=== PATIENT | male | born 1940 | race Caucasian/White ===

== ENCOUNTER → 2018-04-02 | Outpatient (CLI) | payer MEDICARE, OTHER ==
[~2018-04-02] MED LIST: ALPR.5; AMIO200 PO; ASCO1ER PO; ASCO500 PO; Ativan0.5 MG SL; BACL10 PO; CYCL10 PO; DIGO.25 PO; DILT120; DOCU100; DOCU100 PO; Dazidox10 MG PO; ERGO400 PO; FISH1000 PO; FLEC50 PO; FURO20; GABA100 PO; HYDMOR4 PO; HYDROMORPHO; LISI20; LISI20 PO; LOSA50 PO; METO25ER; METO25ER PO; METO50 PO; METO50ER PO; MORP15ER PO; MORP30ER PO; MORPHINE PUMP; MULVITB&C PO; MULVITMIND PO; MULVITMINF PO; NIAC500 PO; NORT75 PO; ONDA4ODT MM; ONDA8 PO; OXYC30 PO; PROP150 PO; Percocet 5-3251 EACH PO; ROSU10TA PO; SALMON OIL PO; SIMV40; SLEEP-AID25 MG PO; TADA10TA PO; TERA5; TIZANIDINE HCL4 MG PO; TOCO400 PO; TRAZ100; TRAZ100 PO; Tobrex5 ML RIGHTEYE; VITAMIN D PO; VITB100 PO; WARF10; WARF10 PO; WARF7.5; WARF7.5 PO; [UNRECOGNIZED DRUG - OTHER] PO; [UNRECOGNIZED DRUG - REMARK]
== END | disposition home or self-care (01) ==
LOC: PLD 10:07 → LAB SHORT 10:07
DX: C44.619 Basal cell carcinoma of skin of left upper limb, including shoulder (principal)
CPT/HCPCS: 88305

== ENCOUNTER 2018-06-13 11:11 | Emergency (ER) | payer MEDICARE, OTHER ==
[~2018-06-13] VITALS: Ht 167.6 cm; Wt 79.8 kg
[2018-06-13 11:36] LABS: PCO2 Arterial 35.1 mmHg (35-45); PO2 Arterial 63.3 mmHg (80-100)
[2018-06-13 11:49] LABS: BASOPHILS ABSOLUTE AUTO 0.04 K/mm3 (0.00-0.23); BASOPHILS PERCENT AUTO 0 % (0-2); EOSINOPHILS PERCENT AUTO 0 % (0-6); Hematocrit 37.4 % (37.0-53.0); Hemoglobin 12.4 g/dL (13.5-17.5); IMMATURE GRAN ABSOLUTE AUTO 0.06 K/mm3 (0.00-0.10); IMMATURE GRAN PERCENT AUTO 1 % (0-1); LYMPHOCYTES ABSOLUTE AUTO 1.08 K/mm3 (0.84-5.20); LYMPHOCYTES PERCENT AUTO 8 % (21-46); MONOCYTES ABSOLUTE AUTO 0.26 K/mm3 (0.16-1.47); MONOCYTES PERCENT AUTO 2 % (4-13); Mean Corpuscular HGB 30.2 pg (26.0-34.0); Mean Corpuscular HGB Conc 33.2 g/dL (31.5-36.5); Mean Corpuscular Volume 91 fL (80-100); Mean Platelet Volume 9.2 fL (9.1-12.4); NEUTROPHILS ABSOLUTE AUTO 11.69 K/mm3 (1.96-9.15); NEUTROPHILS PERCENT AUTO 89 % (41-73); Platelet Count 265 K/mm3 (150-400); RDW Standard Deviation 43.1 fL (35.1-46.3); White Blood Cell Count 13.13 K/mm3 (4.00-11.30)
[2018-06-13 12:12] LABS: Alanine Aminotransfer (ALT/SGP 20 U/L (12-78); Albumin, Blood 3.7 g/dL (3.4-5.0); Albumin/Globulin Ratio 0.9 (0.8-1.8); Alk Phos 69 U/L (50-136); Anion Gap 9 mmol/L (6-16); Aspartate Aminotrans (AST/SGOT 20 U/L (12-37); Bilirubin, Total 0.6 mg/dL (0.1-1.0); Blood Urea Nitrogen 16 mg/dL (8-24); Bun/Creatinine Ratio 23.2 (12.0-20.0); CO2, Blood 27 mmol/L (21-32); Calcium, Blood 9.9 mg/dL (8.5-10.1); Chloride, Blood 103 mmol/L (98-108); Creatinine, Blood 0.69 mg/dL (0.60-1.20); Globulin, Blood 4.1 g/dL (2.2-4.0); Glomerular Filtration Rate >60 (60-); Glucose, Blood 126 mg/dL (70-99); Potassium, Blood 3.6 mmol/L (3.5-5.5); Sodium, Blood 139 mmol/L (136-145); Total Protein, Blood 7.8 g/dL (6.4-8.2)
[2018-06-13] MEDS ORDERED: K-Dur10 MEQ (12:35)
[2018-06-13] MEDS ORDERED: AMLO10 PO (12:35)
[2018-06-13] MEDS ORDERED: FURO20 PO (12:35)
== END 2018-06-13 14:57 | disposition home or self-care (01) ==
LOC: ER 11:11
PROVIDERS: Emergency Medicine
DX: R10.84 Generalized abdominal pain (principal); R53.1 Weakness; Z88.1 Allergy status to other antibiotic agents; Z88.8 Allergy status to other drugs, medicaments and biological substances; Z88.5 Allergy status to narcotic agent; Z91.048 Other nonmedicinal substance allergy status; Z91.040 Latex allergy status; Z79.899 Other long term (current) drug therapy; I48.91 Unspecified atrial fibrillation
CPT/HCPCS: 36415; 36600; 74176; 80053; 82550; 82803; 83605; 83690; 84484; 85025; 93005; 93010; 96361; 96374; 96375; 99285-25; J2405; J3010; J7030

== ENCOUNTER → 2018-06-15 | Outpatient (CLI) | payer MEDICARE, OTHER ==
[~2018-06-15] MED LIST changes: +AMLO10 PO; +FURO20 PO; +K-Dur10 MEQ
[2018-06-15 08:57] LABS: BASOPHILS ABSOLUTE AUTO 0.05 K/mm3 (0.00-0.23); BASOPHILS PERCENT AUTO 0 % (0-2); EOSINOPHILS ABSOLUTE AUTO 0.04 K/mm3 (0.00-0.68); EOSINOPHILS PERCENT AUTO 0 % (0-6); Hematocrit 36.1 % (37.0-53.0); Hemoglobin 12.1 g/dL (13.5-17.5); IMMATURE GRAN ABSOLUTE AUTO 0.09 K/mm3 (0.00-0.10); IMMATURE GRAN PERCENT AUTO 1 % (0-1); LYMPHOCYTES ABSOLUTE AUTO 1.61 K/mm3 (0.84-5.20); LYMPHOCYTES PERCENT AUTO 11 % (21-46); MONOCYTES ABSOLUTE AUTO 1.35 K/mm3 (0.16-1.47); MONOCYTES PERCENT AUTO 9 % (4-13); Mean Corpuscular HGB 30.1 pg (26.0-34.0); Mean Corpuscular HGB Conc 33.5 g/dL (31.5-36.5); Mean Corpuscular Volume 90 fL (80-100); Mean Platelet Volume 9.2 fL (9.1-12.4); NEUTROPHILS ABSOLUTE AUTO 11.96 K/mm3 (1.96-9.15); NEUTROPHILS PERCENT AUTO 79 % (41-73); Platelet Count 250 K/mm3 (150-400); RDW Coefficient Variation 13.2 % (11.7-14.2); RDW Standard Deviation 43.6 fL (35.1-46.3); Red Blood Cell Count 4.02 M/mm3 (4.30-5.90)
[2018-06-15 09:09] LABS: Alanine Aminotransfer (ALT/SGP 27 U/L (12-78); Albumin, Blood 3.4 g/dL (3.4-5.0); Albumin/Globulin Ratio 0.9 (0.8-1.8); Alk Phos 64 U/L (40-126); Anion Gap 10 mmol/L (6-16); Aspartate Aminotrans (AST/SGOT 39 U/L (12-37); Bilirubin, Total 0.5 mg/dL (0.1-1.0); Blood Urea Nitrogen 16 mg/dL (8-24); Bun/Creatinine Ratio 19.3 (12.0-20.0); CO2, Blood 26 mmol/L (21-32); Chloride, Blood 104 mmol/L (98-108); Creatinine, Blood 0.83 mg/dL (0.60-1.20); Glomerular Filtration Rate >60 (60-); Glucose, Blood 115 mg/dL (70-99); Potassium, Blood 3.2 mmol/L (3.5-5.5); Sodium, Blood 140 mmol/L (136-145); Total Protein, Blood 7.4 g/dL (6.4-8.2)
== END | disposition home or self-care (01) ==
LOC: LAB EV 08:54 → LAB SHORT 08:54
PROVIDERS: Physician Assistant Surgical
DX: R42 Dizziness and giddiness (principal)
CPT/HCPCS: 80053; 85025

== ENCOUNTER → 2018-12-07 | Outpatient (CLI) | payer MEDICARE, OTHER | END | disposition home or self-care (01) | LOC: LAB EV 13:14 → LAB SHORT 13:14 | DX: T81.40XA Infection following a procedure, unspecified, initial encounter (principal) | CPT/HCPCS: 87070; 87075; 87077; 87186; 87205 ==

== ENCOUNTER 2019-01-13 16:24 | Emergency (ER) | payer MEDICARE, OTHER ==
[~2019-01-13] VITALS: Ht 167.6 cm; Wt 81.7 kg
== END 2019-01-13 19:28 | disposition home or self-care (01) ==
LOC: ER 16:24
DX: M54.5 Low back pain (principal); I48.91 Unspecified atrial fibrillation; E78.5 Hyperlipidemia, unspecified
CPT/HCPCS: 96374; 96376; 99283-25; J3010

== ENCOUNTER 2019-06-30 13:16 | Day surgery (SDC) | payer MEDICARE, OTHER ==
[2019-06-30] MEDS ORDERED: DOCU100 PO (14:18)
[2019-06-30] MEDS ORDERED: LORA.5 PO (14:18)
== END 2019-06-30 14:01 | disposition home or self-care (01) ==
LOC: ATC 13:16
DX: T84.63XA Infection and inflammatory reaction due to internal fixation device of spine, initial encounter (principal); I10 Essential (primary) hypertension; E78.5 Hyperlipidemia, unspecified; Z88.8 Allergy status to other drugs, medicaments and biological substances; Z88.1 Allergy status to other antibiotic agents; Z88.5 Allergy status to narcotic agent
CPT/HCPCS: 82565; 96365; J0878

== ENCOUNTER 2019-07-01 00:19 | Day surgery (SDC) | payer MEDICARE, OTHER ==
[~2019-07-01 00:19] MED LIST changes: +LORA.5 PO
[2019-07-02] MEDS ORDERED: CUBICIN RF500 MG IV (10:01)
== END 2019-07-01 11:12 | disposition home or self-care (01) ==
LOC: ATC 00:19
DX: T84.63XA Infection and inflammatory reaction due to internal fixation device of spine, initial encounter (principal); E78.00 Pure hypercholesterolemia, unspecified; I10 Essential (primary) hypertension; G47.30 Sleep apnea, unspecified; Z88.1 Allergy status to other antibiotic agents; Z88.5 Allergy status to narcotic agent; Z88.8 Allergy status to other drugs, medicaments and biological substances
CPT/HCPCS: 96365; J0878

== ENCOUNTER 2019-07-02 00:12 | Day surgery (SDC) | payer MEDICARE, OTHER ==
[2019-07-02] MEDS ORDERED: CUBICIN RF500 MG IV (10:01)
== END 2019-07-02 10:30 | disposition home or self-care (01) ==
LOC: ATC 00:12
DX: T84.63XA Infection and inflammatory reaction due to internal fixation device of spine, initial encounter (principal); E78.00 Pure hypercholesterolemia, unspecified; G47.00 Insomnia, unspecified; I10 Essential (primary) hypertension; Z98.890 Other specified postprocedural states; Z98.1 Arthrodesis status; Z88.8 Allergy status to other drugs, medicaments and biological substances; Z88.5 Allergy status to narcotic agent; Y83.1 Surgical operation with implant of artificial internal device as the cause of abnormal reaction of the patient, or of later complication, without mention of misadventure at the time of the procedure
CPT/HCPCS: 96365; J0878

== ENCOUNTER 2019-07-03 00:26 | Day surgery (SDC) | payer MEDICARE, OTHER ==
[~2019-07-03 00:26] MED LIST changes: +CUBICIN RF500 MG IV
== END 2019-07-03 10:53 | disposition home or self-care (01) ==
LOC: ATC 00:26
DX: T84.63XA Infection and inflammatory reaction due to internal fixation device of spine, initial encounter (principal); E78.00 Pure hypercholesterolemia, unspecified; G47.30 Sleep apnea, unspecified
CPT/HCPCS: 96365; J0878

== ENCOUNTER 2019-07-04 00:14 | Day surgery (SDC) | payer MEDICARE, OTHER ==
[2019-07-04 10:51] LABS: BASOPHILS ABSOLUTE AUTO 0.07 K/mm3 (0.00-0.23); BASOPHILS PERCENT AUTO 1 % (0-2); EOSINOPHILS ABSOLUTE AUTO 0.64 K/mm3 (0.00-0.68); EOSINOPHILS PERCENT AUTO 5 % (0-6); Hematocrit 27.7 % (37.0-53.0); Hemoglobin 8.7 g/dL (13.5-17.5); IMMATURE GRAN ABSOLUTE AUTO 0.05 K/mm3 (0.00-0.10); IMMATURE GRAN PERCENT AUTO 0 % (0-1); LYMPHOCYTES ABSOLUTE AUTO 1.66 K/mm3 (0.84-5.20); LYMPHOCYTES PERCENT AUTO 14 % (21-46); MONOCYTES ABSOLUTE AUTO 0.95 K/mm3 (0.16-1.47); MONOCYTES PERCENT AUTO 8 % (4-13); Mean Corpuscular HGB 30.7 pg (26.0-34.0); Mean Corpuscular HGB Conc 31.4 g/dL (31.5-36.5); Mean Corpuscular Volume 98 fL (80-100); NEUTROPHILS ABSOLUTE AUTO 8.69 K/mm3 (1.96-9.15); NEUTROPHILS PERCENT AUTO 72 % (41-73); Platelet Count 304 K/mm3 (150-400); RDW Coefficient Variation 13.8 % (11.7-14.2); RDW Standard Deviation 49.2 fL (35.1-46.3); Red Blood Cell Count 2.83 M/mm3 (4.30-5.90); White Blood Cell Count 12.06 K/mm3 (4.00-11.30)
[2019-07-04 11:10] LABS: Alanine Aminotransfer (ALT/SGP 15 U/L (12-78); Albumin, Blood 3.2 g/dL (3.4-5.0); Albumin/Globulin Ratio 0.8 (0.8-1.8); Alk Phos 84 U/L (50-136); Anion Gap 5 mmol/L (6-16); Aspartate Aminotrans (AST/SGOT 16 U/L (12-37); Bilirubin, Total 0.2 mg/dL (0.1-1.0); Blood Urea Nitrogen 12 mg/dL (8-24); Bun/Creatinine Ratio 13.5 (12.0-20.0); CO2, Blood 30 mmol/L (21-32); CPK Creatine Kinase 114 U/L (39-308); Calcium, Blood 8.6 mg/dL (8.5-10.1); Chloride, Blood 103 mmol/L (98-108); Creatinine, Blood 0.89 mg/dL (0.60-1.20); Glomerular Filtration Rate >60 (60-); Glucose, Blood 109 mg/dL (70-99); Potassium, Blood 4.2 mmol/L (3.5-5.5); Sodium, Blood 138 mmol/L (136-145); Total Protein, Blood 7.2 g/dL (6.4-8.2)
--- NOTE | 2019-07-04 11:26 | NUR ---
LABS DRAWN PRIOR TO MEDICATION ADMINISTRATION TODAY.
--- NOTE | 2019-07-04 11:49 | NUR ---
LAB RESULTS FROM TODAY FAXED TO DR. SALDIVAR'S OFFICE.
== END 2019-07-04 11:35 | disposition home or self-care (01) ==
LOC: ATC 00:14
PROVIDERS: Neurological Surgery
DX: T84.63XA Infection and inflammatory reaction due to internal fixation device of spine, initial encounter (principal); E78.00 Pure hypercholesterolemia, unspecified; G47.30 Sleep apnea, unspecified; G43.909 Migraine, unspecified, not intractable, without status migrainosus
CPT/HCPCS: 80053; 82550; 85025; 85651; 86140; 96365; J0878

== ENCOUNTER 2019-07-05 00:22 | Day surgery (SDC) | payer MEDICARE, OTHER | END 2019-07-05 11:01 | disposition home or self-care (01) | LOC: ATC 00:22 | DX: T84.63XA Infection and inflammatory reaction due to internal fixation device of spine, initial encounter (principal); M96.1 Postlaminectomy syndrome, not elsewhere classified; I10 Essential (primary) hypertension; E78.5 Hyperlipidemia, unspecified; G47.30 Sleep apnea, unspecified; Z79.899 Other long term (current) drug therapy; Z88.8 Allergy status to other drugs, medicaments and biological substances; Z88.1 Allergy status to other antibiotic agents; Z88.5 Allergy status to narcotic agent | CPT/HCPCS: 96365; J0878 ==

== ENCOUNTER 2019-07-06 09:51 | Day surgery (SDC) | payer MEDICARE, OTHER | END 2019-07-06 10:36 | disposition home or self-care (01) | LOC: ATC 09:51 | DX: T84.63XA Infection and inflammatory reaction due to internal fixation device of spine, initial encounter (principal); E78.00 Pure hypercholesterolemia, unspecified; G47.30 Sleep apnea, unspecified; I10 Essential (primary) hypertension; Z88.1 Allergy status to other antibiotic agents; Z88.5 Allergy status to narcotic agent; Z88.8 Allergy status to other drugs, medicaments and biological substances; Z79.899 Other long term (current) drug therapy | CPT/HCPCS: 96365; J0878 ==

== ENCOUNTER 2019-07-07 12:55 | Day surgery (SDC) | payer MEDICARE, OTHER | END 2019-07-07 13:58 | disposition home or self-care (01) | LOC: ATC 12:55 | DX: T84.63XA Infection and inflammatory reaction due to internal fixation device of spine, initial encounter (principal); I10 Essential (primary) hypertension; E78.5 Hyperlipidemia, unspecified; G47.30 Sleep apnea, unspecified; Z98.890 Other specified postprocedural states; Z88.8 Allergy status to other drugs, medicaments and biological substances; Z88.1 Allergy status to other antibiotic agents; Z88.5 Allergy status to narcotic agent | CPT/HCPCS: 96365; J0878 ==

== ENCOUNTER 2019-07-08 00:06 | Day surgery (SDC) | payer MEDICARE, OTHER | END 2019-07-08 10:21 | disposition home or self-care (01) | LOC: ATC 00:06 | DX: T84.63XA Infection and inflammatory reaction due to internal fixation device of spine, initial encounter (principal); E78.5 Hyperlipidemia, unspecified; I10 Essential (primary) hypertension; Z88.1 Allergy status to other antibiotic agents; Z88.5 Allergy status to narcotic agent; Z88.8 Allergy status to other drugs, medicaments and biological substances | CPT/HCPCS: 96365; J0878 ==

== ENCOUNTER 2019-07-09 00:18 | Day surgery (SDC) | payer MEDICARE, OTHER | END 2019-07-09 10:25 | disposition home or self-care (01) | LOC: ATC 00:18 | DX: T84.63XA Infection and inflammatory reaction due to internal fixation device of spine, initial encounter (principal); E78.00 Pure hypercholesterolemia, unspecified; G47.30 Sleep apnea, unspecified; I10 Essential (primary) hypertension | CPT/HCPCS: 96365; J0878 ==

== ENCOUNTER 2019-07-10 00:14 | Day surgery (SDC) | payer MEDICARE, OTHER | END 2019-07-10 10:11 | disposition home or self-care (01) | LOC: ATC 00:14 | DX: T84.63XA Infection and inflammatory reaction due to internal fixation device of spine, initial encounter (principal); E78.00 Pure hypercholesterolemia, unspecified; G47.30 Sleep apnea, unspecified; E78.5 Hyperlipidemia, unspecified; I10 Essential (primary) hypertension; Z88.1 Allergy status to other antibiotic agents; Z88.5 Allergy status to narcotic agent; Z88.8 Allergy status to other drugs, medicaments and biological substances | CPT/HCPCS: 96365; J0878 ==

== ENCOUNTER 2019-07-11 00:23 | Day surgery (SDC) | payer MEDICARE, OTHER ==
[2019-07-11 09:36] LABS: BASOPHILS ABSOLUTE AUTO 0.05 K/mm3 (0.00-0.23); BASOPHILS PERCENT AUTO 1 % (0-2); EOSINOPHILS ABSOLUTE AUTO 0.42 K/mm3 (0.00-0.68); EOSINOPHILS PERCENT AUTO 5 % (0-6); Hematocrit 27.7 % (37.0-53.0); Hemoglobin 8.7 g/dL (13.5-17.5); IMMATURE GRAN ABSOLUTE AUTO 0.03 K/mm3 (0.00-0.10); IMMATURE GRAN PERCENT AUTO 0 % (0-1); LYMPHOCYTES PERCENT AUTO 14 % (21-46); MONOCYTES ABSOLUTE AUTO 0.86 K/mm3 (0.16-1.47); MONOCYTES PERCENT AUTO 10 % (4-13); Mean Corpuscular HGB 30.5 pg (26.0-34.0); Mean Corpuscular HGB Conc 31.4 g/dL (31.5-36.5); Mean Corpuscular Volume 97 fL (80-100); Mean Platelet Volume 8.8 fL (9.1-12.4); NEUTROPHILS PERCENT AUTO 69 % (41-73); Platelet Count 375 K/mm3 (150-400); RDW Coefficient Variation 13.5 % (11.7-14.2); RDW Standard Deviation 48.5 fL (35.1-46.3); Red Blood Cell Count 2.85 M/mm3 (4.30-5.90); White Blood Cell Count 8.36 K/mm3 (4.00-11.30)
[2019-07-11 10:12] LABS: Alanine Aminotransfer (ALT/SGP 14 U/L (12-78); Albumin, Blood 3.2 g/dL (3.4-5.0); Albumin/Globulin Ratio 0.7 (0.8-1.8); Alk Phos 83 U/L (50-136); Anion Gap 4 mmol/L (6-16); Aspartate Aminotrans (AST/SGOT 13 U/L (12-37); Bilirubin, Total 0.3 mg/dL (0.1-1.0); Blood Urea Nitrogen 13 mg/dL (8-24); Bun/Creatinine Ratio 15.4 (12.0-20.0); CO2, Blood 29 mmol/L (21-32); CPK Creatine Kinase 80 U/L (39-308); Chloride, Blood 105 mmol/L (98-108); Creatinine, Blood 0.84 mg/dL (0.60-1.20); Globulin, Blood 4.4 g/dL (2.2-4.0); Glomerular Filtration Rate >60 (60-); Glucose, Blood 102 mg/dL (70-99); Potassium, Blood 4.2 mmol/L (3.5-5.5); Sodium, Blood 138 mmol/L (136-145); Total Protein, Blood 7.6 g/dL (6.4-8.2)
== END 2019-07-11 09:49 | disposition home or self-care (01) ==
LOC: ATC 00:23
PROVIDERS: Specialist
DX: T84.63XA Infection and inflammatory reaction due to internal fixation device of spine, initial encounter (principal); I10 Essential (primary) hypertension; E78.5 Hyperlipidemia, unspecified; Z79.899 Other long term (current) drug therapy; Z88.8 Allergy status to other drugs, medicaments and biological substances; Z88.6 Allergy status to analgesic agent
CPT/HCPCS: 80053; 82550; 85025; 85651; 86140; 96365; J0878

== ENCOUNTER 2019-07-12 09:02 | Day surgery (SDC) | payer MEDICARE, OTHER | END 2019-07-12 09:48 | disposition home or self-care (01) | LOC: ATC 09:02 | DX: T84.63XA Infection and inflammatory reaction due to internal fixation device of spine, initial encounter (principal); I10 Essential (primary) hypertension; E78.5 Hyperlipidemia, unspecified; Z88.8 Allergy status to other drugs, medicaments and biological substances; Z88.1 Allergy status to other antibiotic agents; Z88.5 Allergy status to narcotic agent; Z91.048 Other nonmedicinal substance allergy status; Z79.899 Other long term (current) drug therapy | CPT/HCPCS: 96365; J0878 ==

== ENCOUNTER 2019-07-13 08:48 | Day surgery (SDC) | payer MEDICARE, OTHER | END 2019-07-13 09:53 | disposition home or self-care (01) | LOC: ATC 08:48 | DX: T84.63XA Infection and inflammatory reaction due to internal fixation device of spine, initial encounter (principal); E78.00 Pure hypercholesterolemia, unspecified | CPT/HCPCS: 96365; J0878 ==

== ENCOUNTER 2019-07-14 13:04 | Day surgery (SDC) | payer MEDICARE, OTHER | END 2019-07-14 13:49 | disposition home or self-care (01) | LOC: ATC 13:04 | DX: T84.63XA Infection and inflammatory reaction due to internal fixation device of spine, initial encounter (principal); I10 Essential (primary) hypertension; E78.5 Hyperlipidemia, unspecified; Z79.899 Other long term (current) drug therapy; Z88.8 Allergy status to other drugs, medicaments and biological substances; Z88.1 Allergy status to other antibiotic agents; Z91.048 Other nonmedicinal substance allergy status; Z88.5 Allergy status to narcotic agent | CPT/HCPCS: 96365; J0878 ==

== ENCOUNTER 2019-07-15 00:14 | Day surgery (SDC) | payer MEDICARE, OTHER ==
--- NOTE | 2019-07-15 11:27 | NUR ---
Spoke with Chelsea DEVLIN for Dr. Lim's office to notify them of pt's brown clots in urine over the past two days and continued back pain. Labs from 07/04/19 and 07/11/[address] Lim's office. Pt has had an increase in his ESR and CRP. Chelsea notified of the change in lab work. Chelsea states she will contact pt for further information and instructions. Called Lawrence to update him that Dr. Lim's office will be calling him. He reported that he had just got off the phone with Chelsea and she will follow up with him.
== END 2019-07-15 10:56 | disposition home or self-care (01) ==
LOC: ATC 00:14
DX: T84.63XA Infection and inflammatory reaction due to internal fixation device of spine, initial encounter (principal); T81.40XD Infection following a procedure, unspecified, subsequent encounter; I10 Essential (primary) hypertension; E78.5 Hyperlipidemia, unspecified
CPT/HCPCS: 36415; 80053; J0878

== ENCOUNTER 2019-07-16 00:07 | Day surgery (SDC) | payer MEDICARE, OTHER | END 2019-07-16 10:10 | disposition home or self-care (01) | LOC: ATC 00:07 | DX: T84.63XA Infection and inflammatory reaction due to internal fixation device of spine, initial encounter (principal); I10 Essential (primary) hypertension; E78.5 Hyperlipidemia, unspecified; Z88.1 Allergy status to other antibiotic agents | CPT/HCPCS: 96365; J0878 ==

== ENCOUNTER 2019-07-17 00:13 | Day surgery (SDC) | payer MEDICARE, OTHER | END 2019-07-17 09:49 | disposition home or self-care (01) | LOC: ATC 00:13 | DX: T84.63XA Infection and inflammatory reaction due to internal fixation device of spine, initial encounter (principal); I10 Essential (primary) hypertension; Z79.899 Other long term (current) drug therapy; Z88.8 Allergy status to other drugs, medicaments and biological substances; Z88.6 Allergy status to analgesic agent; Z88.1 Allergy status to other antibiotic agents; Z88.5 Allergy status to narcotic agent | CPT/HCPCS: 96365; J0878 ==

== ENCOUNTER 2019-07-18 00:25 | Day surgery (SDC) | payer MEDICARE, OTHER ==
[2019-07-18 08:49] LABS: BASOPHILS ABSOLUTE AUTO 0.05 K/mm3 (0.00-0.23); BASOPHILS PERCENT AUTO 1 % (0-2); EOSINOPHILS ABSOLUTE AUTO 0.53 K/mm3 (0.00-0.68); EOSINOPHILS PERCENT AUTO 6 % (0-6); Hematocrit 28.9 % (37.0-53.0); Hemoglobin 8.9 g/dL (13.5-17.5); IMMATURE GRAN ABSOLUTE AUTO 0.03 K/mm3 (0.00-0.10); IMMATURE GRAN PERCENT AUTO 0 % (0-1); LYMPHOCYTES ABSOLUTE AUTO 1.59 K/mm3 (0.84-5.20); LYMPHOCYTES PERCENT AUTO 18 % (21-46); MONOCYTES ABSOLUTE AUTO 0.69 K/mm3 (0.16-1.47); MONOCYTES PERCENT AUTO 8 % (4-13); Mean Corpuscular HGB 29.4 pg (26.0-34.0); Mean Corpuscular HGB Conc 30.8 g/dL (31.5-36.5); Mean Corpuscular Volume 95 fL (80-100); Mean Platelet Volume 8.7 fL (9.1-12.4); NEUTROPHILS ABSOLUTE AUTO 6.08 K/mm3 (1.96-9.15); NEUTROPHILS PERCENT AUTO 68 % (41-73); Platelet Count 334 K/mm3 (150-400); RDW Coefficient Variation 13.3 % (11.7-14.2); RDW Standard Deviation 46.3 fL (35.1-46.3); Red Blood Cell Count 3.03 M/mm3 (4.30-5.90); White Blood Cell Count 8.97 K/mm3 (4.00-11.30)
[2019-07-18 09:09] LABS: Alanine Aminotransfer (ALT/SGP 17 U/L (12-78); Albumin, Blood 3.4 g/dL (3.4-5.0); Albumin/Globulin Ratio 0.8 (0.8-1.8); Alk Phos 81 U/L (50-136); Anion Gap 5 mmol/L (6-16); Aspartate Aminotrans (AST/SGOT 15 U/L (12-37); Bilirubin, Total 0.2 mg/dL (0.1-1.0); Blood Urea Nitrogen 18 mg/dL (8-24); Bun/Creatinine Ratio 19.7 (12.0-20.0); C-REACTIVE PROTEIN, EXT RANGE 0.651 mg/dL (0.000-0.300); CO2, Blood 31 mmol/L (21-32); CPK Creatine Kinase 118 U/L (39-308); Calcium, Blood 8.8 mg/dL (8.5-10.1); Chloride, Blood 105 mmol/L (98-108); Creatinine, Blood 0.92 mg/dL (0.60-1.20); Globulin, Blood 4.3 g/dL (2.2-4.0); Glomerular Filtration Rate >60 (60-); Glucose, Blood 96 mg/dL (70-99); Potassium, Blood 4.5 mmol/L (3.5-5.5); Sodium, Blood 141 mmol/L (136-145); Total Protein, Blood 7.7 g/dL (6.4-8.2)
== END 2019-07-18 09:05 | disposition home or self-care (01) ==
LOC: ATC 00:25
PROVIDERS: Specialist
DX: T84.63XA Infection and inflammatory reaction due to internal fixation device of spine, initial encounter (principal); E78.00 Pure hypercholesterolemia, unspecified; I10 Essential (primary) hypertension; Z88.5 Allergy status to narcotic agent; Z88.8 Allergy status to other drugs, medicaments and biological substances; Z88.1 Allergy status to other antibiotic agents
CPT/HCPCS: 80053; 82550; 85025; 85651; 86140; 96365; J0878

== ENCOUNTER 2019-07-19 01:55 | Day surgery (SDC) | payer MEDICARE, OTHER | END 2019-07-19 10:09 | disposition home or self-care (01) | LOC: ATC 01:55 | DX: T84.63XA Infection and inflammatory reaction due to internal fixation device of spine, initial encounter (principal); I10 Essential (primary) hypertension; E78.5 Hyperlipidemia, unspecified; Z79.899 Other long term (current) drug therapy; Z88.8 Allergy status to other drugs, medicaments and biological substances; Z88.5 Allergy status to narcotic agent; Z88.1 Allergy status to other antibiotic agents; Z98.1 Arthrodesis status | CPT/HCPCS: 96365; J0878 ==

== ENCOUNTER 2019-07-20 08:43 | Day surgery (SDC) | payer MEDICARE, OTHER | END 2019-07-20 09:50 | disposition home or self-care (01) | LOC: ATC 08:43 | DX: T84.63XA Infection and inflammatory reaction due to internal fixation device of spine, initial encounter (principal); I10 Essential (primary) hypertension; E78.5 Hyperlipidemia, unspecified; Z88.8 Allergy status to other drugs, medicaments and biological substances; Z88.5 Allergy status to narcotic agent; Z88.1 Allergy status to other antibiotic agents; Z98.890 Other specified postprocedural states; Z79.899 Other long term (current) drug therapy | CPT/HCPCS: 96365; J0878 ==

== ENCOUNTER 2019-07-21 13:18 | Day surgery (SDC) | payer MEDICARE, OTHER | END 2019-07-21 14:00 | disposition home or self-care (01) | LOC: ATC 13:18 | DX: T84.63XA Infection and inflammatory reaction due to internal fixation device of spine, initial encounter (principal); E78.00 Pure hypercholesterolemia, unspecified; I10 Essential (primary) hypertension; Z88.1 Allergy status to other antibiotic agents | CPT/HCPCS: 96365; J0878 ==

== ENCOUNTER 2019-07-22 09:15 | Day surgery (SDC) | payer MEDICARE, OTHER | END 2019-07-22 10:52 | disposition home or self-care (01) | LOC: ATC 09:15 | DX: T84.63XA Infection and inflammatory reaction due to internal fixation device of spine, initial encounter (principal); I10 Essential (primary) hypertension; E78.5 Hyperlipidemia, unspecified; Z88.8 Allergy status to other drugs, medicaments and biological substances | CPT/HCPCS: 96365; J0878 ==

== ENCOUNTER 2019-07-23 00:03 | Day surgery (SDC) | payer MEDICARE, OTHER | END 2019-07-23 09:44 | disposition home or self-care (01) | LOC: ATC 00:03 | DX: T84.63XA Infection and inflammatory reaction due to internal fixation device of spine, initial encounter (principal); I10 Essential (primary) hypertension; E78.5 Hyperlipidemia, unspecified; Z88.1 Allergy status to other antibiotic agents | CPT/HCPCS: 96365; J0878 ==

== ENCOUNTER 2019-07-24 00:03 | Day surgery (SDC) | payer MEDICARE, OTHER | END 2019-07-24 08:08 | disposition home or self-care (01) | LOC: ATC 00:03 | DX: T84.63XA Infection and inflammatory reaction due to internal fixation device of spine, initial encounter (principal); I10 Essential (primary) hypertension; E78.5 Hyperlipidemia, unspecified; Z88.1 Allergy status to other antibiotic agents | CPT/HCPCS: 96365; J0878 ==

== ENCOUNTER 2019-07-25 00:05 | Day surgery (SDC) | payer MEDICARE, OTHER ==
[2019-07-25 10:07] LABS: BASOPHILS ABSOLUTE AUTO 0.06 K/mm3 (0.00-0.23); BASOPHILS PERCENT AUTO 1 % (0-2); EOSINOPHILS ABSOLUTE AUTO 0.41 K/mm3 (0.00-0.68); EOSINOPHILS PERCENT AUTO 4 % (0-6); Hematocrit 30.8 % (37.0-53.0); Hemoglobin 9.6 g/dL (13.5-17.5); IMMATURE GRAN ABSOLUTE AUTO 0.02 K/mm3 (0.00-0.10); IMMATURE GRAN PERCENT AUTO 0 % (0-1); LYMPHOCYTES ABSOLUTE AUTO 1.79 K/mm3 (0.84-5.20); LYMPHOCYTES PERCENT AUTO 18 % (21-46); MONOCYTES ABSOLUTE AUTO 0.74 K/mm3 (0.16-1.47); MONOCYTES PERCENT AUTO 7 % (4-13); Mean Corpuscular HGB 29.5 pg (26.0-34.0); Mean Corpuscular HGB Conc 31.2 g/dL (31.5-36.5); Mean Corpuscular Volume 95 fL (80-100); Mean Platelet Volume 9.4 fL (9.1-12.4); NEUTROPHILS ABSOLUTE AUTO 7.04 K/mm3 (1.96-9.15); NEUTROPHILS PERCENT AUTO 70 % (41-73); Platelet Count 312 K/mm3 (150-400); RDW Coefficient Variation 13.3 % (11.7-14.2); RDW Standard Deviation 46.5 fL (35.1-46.3); Red Blood Cell Count 3.25 M/mm3 (4.30-5.90); White Blood Cell Count 10.06 K/mm3 (4.00-11.30)
[2019-07-25 10:30] LABS: Alanine Aminotransfer (ALT/SGP 16 U/L (12-78); Albumin, Blood 3.5 g/dL (3.4-5.0); Albumin/Globulin Ratio 0.8 (0.8-1.8); Alk Phos 81 U/L (50-136); Anion Gap 4 mmol/L (6-16); Aspartate Aminotrans (AST/SGOT 20 U/L (12-37); Bilirubin, Total 0.4 mg/dL (0.1-1.0); Blood Urea Nitrogen 19 mg/dL (8-24); Bun/Creatinine Ratio 20.3 (12.0-20.0); C-REACTIVE PROTEIN, EXT RANGE 0.425 mg/dL (0.000-0.300); CO2, Blood 30 mmol/L (21-32); Calcium, Blood 9.2 mg/dL (8.5-10.1); Chloride, Blood 103 mmol/L (98-108); Creatinine, Blood 0.94 mg/dL (0.60-1.20); Globulin, Blood 4.4 g/dL (2.2-4.0); Glomerular Filtration Rate >60 (60-); Glucose, Blood 99 mg/dL (70-99); Sodium, Blood 137 mmol/L (136-145); Total Protein, Blood 7.9 g/dL (6.4-8.2)
[2019-07-25 10:32] LABS: CPK Creatine Kinase 113 U/L (39-308)
== END 2019-07-25 09:55 | disposition home or self-care (01) ==
LOC: ATC 00:05
PROVIDERS: Neurological Surgery
DX: T84.63XA Infection and inflammatory reaction due to internal fixation device of spine, initial encounter (principal); I10 Essential (primary) hypertension; E78.5 Hyperlipidemia, unspecified; Z88.1 Allergy status to other antibiotic agents
CPT/HCPCS: 80053; 82550; 85025; 85651; 86140; 96365; J0878

== ENCOUNTER 2019-07-26 00:30 | Day surgery (SDC) | payer MEDICARE, OTHER | END 2019-07-26 16:31 | disposition home or self-care (01) | LOC: ATC 00:30 | DX: T84.63XA Infection and inflammatory reaction due to internal fixation device of spine, initial encounter (principal); I10 Essential (primary) hypertension; E78.5 Hyperlipidemia, unspecified; Z98.890 Other specified postprocedural states; Z79.899 Other long term (current) drug therapy; Z88.8 Allergy status to other drugs, medicaments and biological substances; Z88.5 Allergy status to narcotic agent; Z88.1 Allergy status to other antibiotic agents | CPT/HCPCS: 96365; J0878 ==

== ENCOUNTER 2019-07-27 09:03 | Day surgery (SDC) | payer MEDICARE, OTHER | END 2019-07-27 09:58 | disposition home or self-care (01) | LOC: ATC 09:03 | DX: T84.63XA Infection and inflammatory reaction due to internal fixation device of spine, initial encounter (principal); E78.5 Hyperlipidemia, unspecified; I10 Essential (primary) hypertension; Z79.899 Other long term (current) drug therapy; Z88.5 Allergy status to narcotic agent; Z88.8 Allergy status to other drugs, medicaments and biological substances; Z88.1 Allergy status to other antibiotic agents | CPT/HCPCS: 96365; J0878 ==

== ENCOUNTER 2019-07-28 13:00 | Day surgery (SDC) | payer MEDICARE, OTHER | END 2019-07-28 14:15 | disposition home or self-care (01) | LOC: ATC 13:00 | DX: T84.63XA Infection and inflammatory reaction due to internal fixation device of spine, initial encounter (principal); I10 Essential (primary) hypertension; E78.5 Hyperlipidemia, unspecified; Z98.890 Other specified postprocedural states; Z79.899 Other long term (current) drug therapy; Z88.1 Allergy status to other antibiotic agents; Z88.8 Allergy status to other drugs, medicaments and biological substances; Z91.048 Other nonmedicinal substance allergy status | CPT/HCPCS: 96365; J0878 ==

== ENCOUNTER 2019-07-29 08:51 | Day surgery (SDC) | payer MEDICARE, OTHER | END 2019-07-29 10:02 | disposition home or self-care (01) | LOC: ATC 08:51 | DX: T84.63XA Infection and inflammatory reaction due to internal fixation device of spine, initial encounter (principal); I10 Essential (primary) hypertension; E78.5 Hyperlipidemia, unspecified; Z88.1 Allergy status to other antibiotic agents | CPT/HCPCS: 96365; J0878 ==

== ENCOUNTER 2019-07-30 00:18 | Day surgery (SDC) | payer MEDICARE, OTHER | END 2019-07-30 09:26 | disposition home or self-care (01) | LOC: ATC 00:18 | DX: T84.63XA Infection and inflammatory reaction due to internal fixation device of spine, initial encounter (principal); E78.5 Hyperlipidemia, unspecified; I10 Essential (primary) hypertension; Z88.1 Allergy status to other antibiotic agents; Z88.8 Allergy status to other drugs, medicaments and biological substances; Z88.5 Allergy status to narcotic agent; Z79.899 Other long term (current) drug therapy | CPT/HCPCS: 96365; J0878 ==

== ENCOUNTER 2019-07-31 00:08 | Day surgery (SDC) | payer MEDICARE, OTHER ==
--- NOTE | 2019-07-31 10:18 | NUR ---
IV WAIT TIME: PT CALLED FRONT OFFICE TO LET US KNOW THAT HE WAS COMING IN, FOR UNKNOWN REASONS PHARMACY DID NOT GET NOTIFIED. PT WAITED FOR OVER AN HOUR, UPSET AND IN PAIN, MEDICATION GIVEN AND PT IS GOING TO CALL PHARMACY HIMSELF, EVEN THOUGH PT IS A LOYAL PT, [facility] IN PHARMACY SAYS THEY CAN'T MAKE IT AHEAD OF TIME AND IS OK WITH PT CALLING IN THE MORNING TO LET THEM KNOW HE IS ON HIS WAY
== END 2019-07-31 10:16 | disposition home or self-care (01) ==
LOC: ATC 00:08
DX: T84.63XA Infection and inflammatory reaction due to internal fixation device of spine, initial encounter (principal); I10 Essential (primary) hypertension; E78.5 Hyperlipidemia, unspecified; G47.30 Sleep apnea, unspecified; Z79.899 Other long term (current) drug therapy; Z88.8 Allergy status to other drugs, medicaments and biological substances; Z88.5 Allergy status to narcotic agent; Z88.1 Allergy status to other antibiotic agents
CPT/HCPCS: 96365; J0878

== ENCOUNTER 2019-08-01 08:41 | Day surgery (SDC) | payer MEDICARE, OTHER ==
--- NOTE | 2019-08-01 09:28 | NUR ---
PT DID COME INTO TODAY AND STATED THAT HE HAD DEVELOPED A SMALL RASH TO HIS BILAT CHEST YESTERDAY. C/O SOME ITCHING. NO WEEPING. A FEW SMALL RASHED RED PATCHES NOTED TO BILAT CHEST. PT DENIES ANY CHANGES TO DIET OR ENVIRNOMENT, DETERGENTS AT HOME. NO OTHER SYMPTOMS OF ALLERGIC REACTION REPORTED.
[2019-08-01 09:30] LABS: BASOPHILS ABSOLUTE AUTO 0.04 K/mm3 (0.00-0.23); BASOPHILS PERCENT AUTO 1 % (0-2); EOSINOPHILS ABSOLUTE AUTO 0.31 K/mm3 (0.00-0.68); EOSINOPHILS PERCENT AUTO 4 % (0-6); Hematocrit 30.2 % (37.0-53.0); Hemoglobin 9.4 g/dL (13.5-17.5); IMMATURE GRAN ABSOLUTE AUTO 0.03 K/mm3 (0.00-0.10); IMMATURE GRAN PERCENT AUTO 0 % (0-1); LYMPHOCYTES ABSOLUTE AUTO 1.96 K/mm3 (0.84-5.20); LYMPHOCYTES PERCENT AUTO 22 % (21-46); MONOCYTES ABSOLUTE AUTO 0.78 K/mm3 (0.16-1.47); MONOCYTES PERCENT AUTO 9 % (4-13); Mean Corpuscular HGB 29.4 pg (26.0-34.0); Mean Corpuscular HGB Conc 31.1 g/dL (31.5-36.5); Mean Corpuscular Volume 94 fL (80-100); Mean Platelet Volume 9.3 fL (9.1-12.4); NEUTROPHILS ABSOLUTE AUTO 5.75 K/mm3 (1.96-9.15); NEUTROPHILS PERCENT AUTO 65 % (41-73); Platelet Count 280 K/mm3 (150-400); RDW Coefficient Variation 13.3 % (11.7-14.2); RDW Standard Deviation 46.1 fL (35.1-46.3); White Blood Cell Count 8.87 K/mm3 (4.00-11.30)
--- NOTE | 2019-08-01 09:41 | NUR ---
STEFFANY WITH DR. SALDIVAR'S OFFICE. WE CURRENTLY DO NOT HAVE AN ORDER TO DC PICC LINE ON Monday08/03/19 WHEN HIS ANTIBIOTIC INFUSTIONS WILL BE COMPLETE.
[2019-08-01 09:47] LABS: C-REACTIVE PROTEIN, EXT RANGE 0.351 mg/dL (0.000-0.300)
[2019-08-01 09:49] LABS: Alanine Aminotransfer (ALT/SGP 18 U/L (12-78); Albumin, Blood 3.6 g/dL (3.4-5.0); Albumin/Globulin Ratio 0.9 (0.8-1.8); Alk Phos 75 U/L (50-136); Anion Gap 2 mmol/L (6-16); Aspartate Aminotrans (AST/SGOT 20 U/L (12-37); Bilirubin, Total 0.3 mg/dL (0.1-1.0); Blood Urea Nitrogen 11 mg/dL (8-24); Bun/Creatinine Ratio 12.6 (12.0-20.0); CO2, Blood 31 mmol/L (21-32); CPK Creatine Kinase 142 U/L (39-308); Chloride, Blood 103 mmol/L (98-108); Creatinine, Blood 0.87 mg/dL (0.60-1.20); Globulin, Blood 4.1 g/dL (2.2-4.0); Glomerular Filtration Rate >60 (60-); Glucose, Blood 104 mg/dL (70-99); Sodium, Blood 136 mmol/L (136-145); Total Protein, Blood 7.7 g/dL (6.4-8.2)
--- NOTE | 2019-08-01 10:49 | NUR ---
LAB RESULTS FROM TODAY FAXED TO DR. SALDIVAR'S OFFICE.
== END 2019-08-01 23:19 | disposition home or self-care (01) ==
LOC: ATC 08:41
PROVIDERS: Neurological Surgery
DX: T84.63XA Infection and inflammatory reaction due to internal fixation device of spine, initial encounter (principal); I10 Essential (primary) hypertension; E78.5 Hyperlipidemia, unspecified; Z79.899 Other long term (current) drug therapy; Z88.1 Allergy status to other antibiotic agents; Z88.8 Allergy status to other drugs, medicaments and biological substances
CPT/HCPCS: 80053; 82550; 85025; 85651; 86140; 96365; J0878

== ENCOUNTER 2019-08-02 02:15 | Day surgery (SDC) | payer MEDICARE, OTHER | END 2019-08-02 09:20 | disposition home or self-care (01) | LOC: ATC 02:15 | DX: T84.63XA Infection and inflammatory reaction due to internal fixation device of spine, initial encounter (principal); I10 Essential (primary) hypertension; E78.5 Hyperlipidemia, unspecified; Z88.0 Allergy status to penicillin; Z88.8 Allergy status to other drugs, medicaments and biological substances; Z91.048 Other nonmedicinal substance allergy status; Z88.5 Allergy status to narcotic agent; Z88.1 Allergy status to other antibiotic agents; Z79.899 Other long term (current) drug therapy; Z98.890 Other specified postprocedural states | CPT/HCPCS: 96365; J0878 ==

== ENCOUNTER 2019-08-03 08:48 | Day surgery (SDC) | payer MEDICARE, OTHER | END 2019-08-03 09:48 | disposition home or self-care (01) | LOC: ATC 08:48 | DX: T84.63XA Infection and inflammatory reaction due to internal fixation device of spine, initial encounter (principal); E78.5 Hyperlipidemia, unspecified; I10 Essential (primary) hypertension; Z79.899 Other long term (current) drug therapy; Z88.5 Allergy status to narcotic agent; Z88.1 Allergy status to other antibiotic agents; Z88.8 Allergy status to other drugs, medicaments and biological substances; Z88.6 Allergy status to analgesic agent | CPT/HCPCS: 96365; J0878 ==

== ENCOUNTER 2019-08-07 00:11 | Day surgery (SDC) | payer MEDICARE, OTHER | END 2019-08-07 08:55 | disposition home or self-care (01) | LOC: ATC 00:11 | DX: T84.63XA Infection and inflammatory reaction due to internal fixation device of spine, initial encounter (principal); E78.5 Hyperlipidemia, unspecified; I10 Essential (primary) hypertension; Z88.1 Allergy status to other antibiotic agents | CPT/HCPCS: 99211 ==

== ENCOUNTER 2019-08-09 09:10 | Day surgery (SDC) | payer MEDICARE, OTHER | END 2019-08-09 11:23 | disposition home or self-care (01) | LOC: ATC 09:10 | DX: T84.63XA Infection and inflammatory reaction due to internal fixation device of spine, initial encounter (principal); I10 Essential (primary) hypertension; E78.5 Hyperlipidemia, unspecified; Z88.8 Allergy status to other drugs, medicaments and biological substances; Z88.5 Allergy status to narcotic agent; Z88.1 Allergy status to other antibiotic agents; Z79.899 Other long term (current) drug therapy; Z79.2 Long term (current) use of antibiotics; Z98.890 Other specified postprocedural states | CPT/HCPCS: 96365; J0878 ==

== ENCOUNTER 2019-08-10 10:34 | Day surgery (SDC) | payer MEDICARE, OTHER | END 2019-08-10 11:18 | disposition home or self-care (01) | LOC: ATC 10:34 | DX: T84.63XA Infection and inflammatory reaction due to internal fixation device of spine, initial encounter (principal); I10 Essential (primary) hypertension; E78.5 Hyperlipidemia, unspecified; Z88.1 Allergy status to other antibiotic agents; Z88.8 Allergy status to other drugs, medicaments and biological substances; Z91.048 Other nonmedicinal substance allergy status; Z88.5 Allergy status to narcotic agent; Z79.899 Other long term (current) drug therapy; Z98.890 Other specified postprocedural states | CPT/HCPCS: 96365; J0878 ==

== ENCOUNTER 2019-08-11 13:09 | Day surgery (SDC) | payer MEDICARE, OTHER ==
[2019-08-12] MEDS ORDERED: CUBICIN RF500 MG IV (10:44)
== END 2019-08-11 14:00 | disposition home or self-care (01) ==
LOC: ATC 13:09
DX: T84.63XA Infection and inflammatory reaction due to internal fixation device of spine, initial encounter (principal); I10 Essential (primary) hypertension; E78.5 Hyperlipidemia, unspecified; Z79.899 Other long term (current) drug therapy; Z88.0 Allergy status to penicillin; Z88.8 Allergy status to other drugs, medicaments and biological substances; Z88.1 Allergy status to other antibiotic agents; Z91.048 Other nonmedicinal substance allergy status; Z88.5 Allergy status to narcotic agent; Z98.890 Other specified postprocedural states
CPT/HCPCS: 96365; J0878

== ENCOUNTER 2019-08-12 00:11 | Day surgery (SDC) | payer MEDICARE, OTHER ==
[2019-08-12] MEDS ORDERED: CUBICIN RF500 MG IV (10:44)
[2019-08-12 11:47] LABS: BASOPHILS ABSOLUTE AUTO 0.05 K/mm3 (0.00-0.23); BASOPHILS PERCENT AUTO 1 % (0-2); EOSINOPHILS ABSOLUTE AUTO 0.31 K/mm3 (0.00-0.68); EOSINOPHILS PERCENT AUTO 4 % (0-6); Hemoglobin 9.3 g/dL (13.5-17.5); IMMATURE GRAN ABSOLUTE AUTO 0.02 K/mm3 (0.00-0.10); IMMATURE GRAN PERCENT AUTO 0 % (0-1); LYMPHOCYTES ABSOLUTE AUTO 1.72 K/mm3 (0.84-5.20); LYMPHOCYTES PERCENT AUTO 23 % (21-46); MONOCYTES ABSOLUTE AUTO 0.55 K/mm3 (0.16-1.47); MONOCYTES PERCENT AUTO 7 % (4-13); Mean Corpuscular HGB 30.5 pg (26.0-34.0); Mean Platelet Volume 9.4 fL (9.1-12.4); NEUTROPHILS PERCENT AUTO 65 % (41-73); Platelet Count 257 K/mm3 (150-400); RDW Coefficient Variation 13.2 % (11.7-14.2); RDW Standard Deviation 47.5 fL (35.1-46.3); Red Blood Cell Count 3.05 M/mm3 (4.30-5.90); White Blood Cell Count 7.65 K/mm3 (4.00-11.30)
[2019-08-12 11:54] LABS: Mean Corpuscular Volume 98 fL (80-100)
[2019-08-12 12:07] LABS: C-REACTIVE PROTEIN, EXT RANGE 0.316 mg/dL (0.000-0.300); CPK Creatine Kinase 172 U/L (39-308)
[2019-08-12 12:08] LABS: Alanine Aminotransfer (ALT/SGP 16 U/L (12-78); Albumin, Blood 3.5 g/dL (3.4-5.0); Albumin/Globulin Ratio 0.9 (0.8-1.8); Alk Phos 71 U/L (50-136); Anion Gap 6 mmol/L (6-16); Aspartate Aminotrans (AST/SGOT 13 U/L (12-37); Bilirubin, Total 0.3 mg/dL (0.1-1.0); Blood Urea Nitrogen 16 mg/dL (8-24); Bun/Creatinine Ratio 17.1 (12.0-20.0); CO2, Blood 30 mmol/L (21-32); Calcium, Blood 8.9 mg/dL (8.5-10.1); Chloride, Blood 103 mmol/L (98-108); Creatinine, Blood 0.94 mg/dL (0.60-1.20); Globulin, Blood 3.8 g/dL (2.2-4.0); Glomerular Filtration Rate >60 (60-); Glucose, Blood 131 mg/dL (70-99); Potassium, Blood 3.7 mmol/L (3.5-5.5); Sodium, Blood 139 mmol/L (136-145); Total Protein, Blood 7.3 g/dL (6.4-8.2)
== END 2019-08-12 11:16 | disposition home or self-care (01) ==
LOC: ATC 00:11
PROVIDERS: Specialist
DX: T84.63XA Infection and inflammatory reaction due to internal fixation device of spine, initial encounter (principal); E78.5 Hyperlipidemia, unspecified; I10 Essential (primary) hypertension; Z88.1 Allergy status to other antibiotic agents
CPT/HCPCS: 80053; 82550; 85025; 85651; 86140; 96365; J0878

== ENCOUNTER 2019-08-13 00:16 | Day surgery (SDC) | payer MEDICARE, OTHER | END 2019-08-13 09:47 | disposition home or self-care (01) | LOC: ATC 00:16 | DX: T84.63XA Infection and inflammatory reaction due to internal fixation device of spine, initial encounter (principal); E78.5 Hyperlipidemia, unspecified; I10 Essential (primary) hypertension; Z88.1 Allergy status to other antibiotic agents | CPT/HCPCS: 96365; J0878 ==

== ENCOUNTER 2019-08-14 00:14 | Day surgery (SDC) | payer MEDICARE, OTHER | END 2019-08-14 09:30 | disposition home or self-care (01) | LOC: ATC 00:14 | DX: T84.63XA Infection and inflammatory reaction due to internal fixation device of spine, initial encounter (principal); I10 Essential (primary) hypertension; E78.5 Hyperlipidemia, unspecified; Z88.1 Allergy status to other antibiotic agents | CPT/HCPCS: 96365; J0878 ==

== ENCOUNTER 2019-08-15 00:26 | Day surgery (SDC) | payer MEDICARE, OTHER | END 2019-08-15 10:00 | disposition home or self-care (01) | LOC: ATC 00:26 | DX: T84.63XA Infection and inflammatory reaction due to internal fixation device of spine, initial encounter (principal); E78.5 Hyperlipidemia, unspecified; I10 Essential (primary) hypertension; Z88.1 Allergy status to other antibiotic agents | CPT/HCPCS: 96365; J0878 ==

== ENCOUNTER 2019-08-16 00:25 | Day surgery (SDC) | payer MEDICARE, OTHER | END 2019-08-16 09:26 | disposition home or self-care (01) | LOC: ATC 00:25 | DX: T84.63XA Infection and inflammatory reaction due to internal fixation device of spine, initial encounter (principal); E78.5 Hyperlipidemia, unspecified; I10 Essential (primary) hypertension; Z88.1 Allergy status to other antibiotic agents | CPT/HCPCS: 96365; J0878 ==

== ENCOUNTER 2019-08-17 08:40 | Day surgery (SDC) | payer MEDICARE, OTHER | END 2019-08-17 09:22 | disposition home or self-care (01) | LOC: ATC 08:40 | DX: T84.63XA Infection and inflammatory reaction due to internal fixation device of spine, initial encounter (principal); I10 Essential (primary) hypertension; E78.5 Hyperlipidemia, unspecified; Z98.890 Other specified postprocedural states; Z91.048 Other nonmedicinal substance allergy status; Z88.8 Allergy status to other drugs, medicaments and biological substances; Z88.0 Allergy status to penicillin; Z88.1 Allergy status to other antibiotic agents; Z88.5 Allergy status to narcotic agent; Z79.899 Other long term (current) drug therapy | CPT/HCPCS: 96365; J0878 ==

== ENCOUNTER 2019-08-18 13:04 | Day surgery (SDC) | payer MEDICARE, OTHER | END 2019-08-18 13:39 | disposition home or self-care (01) | LOC: ATC 13:04 | DX: T84.63XA Infection and inflammatory reaction due to internal fixation device of spine, initial encounter (principal); I10 Essential (primary) hypertension; E78.5 Hyperlipidemia, unspecified; Z98.890 Other specified postprocedural states; Z88.1 Allergy status to other antibiotic agents; Z79.899 Other long term (current) drug therapy; Z88.8 Allergy status to other drugs, medicaments and biological substances; Z91.048 Other nonmedicinal substance allergy status; Z88.5 Allergy status to narcotic agent | CPT/HCPCS: 96365; J0878 ==

== ENCOUNTER 2019-08-19 00:12 | Day surgery (SDC) | payer MEDICARE, OTHER ==
[2019-08-19 11:37] LABS: BASOPHILS ABSOLUTE AUTO 0.05 K/mm3 (0.00-0.23); BASOPHILS PERCENT AUTO 1 % (0-2); EOSINOPHILS ABSOLUTE AUTO 0.31 K/mm3 (0.00-0.68); EOSINOPHILS PERCENT AUTO 4 % (0-6); Hematocrit 30.8 % (37.0-53.0); Hemoglobin 9.4 g/dL (13.5-17.5); IMMATURE GRAN ABSOLUTE AUTO 0.02 K/mm3 (0.00-0.10); IMMATURE GRAN PERCENT AUTO 0 % (0-1); LYMPHOCYTES ABSOLUTE AUTO 1.93 K/mm3 (0.84-5.20); LYMPHOCYTES PERCENT AUTO 22 % (21-46); MONOCYTES ABSOLUTE AUTO 0.68 K/mm3 (0.16-1.47); MONOCYTES PERCENT AUTO 8 % (4-13); Mean Corpuscular HGB 29.2 pg (26.0-34.0); Mean Corpuscular HGB Conc 30.5 g/dL (31.5-36.5); Mean Corpuscular Volume 96 fL (80-100); Mean Platelet Volume 9.6 fL (9.1-12.4); NEUTROPHILS ABSOLUTE AUTO 5.68 K/mm3 (1.96-9.15); NEUTROPHILS PERCENT AUTO 66 % (41-73); Platelet Count 283 K/mm3 (150-400); RDW Coefficient Variation 13.2 % (11.7-14.2); RDW Standard Deviation 46.4 fL (35.1-46.3); Red Blood Cell Count 3.22 M/mm3 (4.30-5.90); White Blood Cell Count 8.67 K/mm3 (4.00-11.30)
[2019-08-19 11:53] LABS: CPK Creatine Kinase 185 U/L (39-308)
[2019-08-19 11:59] LABS: Alanine Aminotransfer (ALT/SGP 19 U/L (12-78); Albumin, Blood 3.6 g/dL (3.4-5.0); Albumin/Globulin Ratio 0.9 (0.8-1.8); Alk Phos 74 U/L (50-136); Anion Gap 6 mmol/L (6-16); Aspartate Aminotrans (AST/SGOT 19 U/L (12-37); Bilirubin, Total 0.3 mg/dL (0.1-1.0); Blood Urea Nitrogen 17 mg/dL (8-24); Bun/Creatinine Ratio 17.7 (12.0-20.0); C-REACTIVE PROTEIN, EXT RANGE 0.395 mg/dL (0.000-0.300); CO2, Blood 28 mmol/L (21-32); Chloride, Blood 106 mmol/L (98-108); Creatinine, Blood 0.96 mg/dL (0.60-1.20); Glomerular Filtration Rate >60 (60-); Glucose, Blood 126 mg/dL (70-99); Potassium, Blood 4.1 mmol/L (3.5-5.5); Sodium, Blood 140 mmol/L (136-145); Total Protein, Blood 7.6 g/dL (6.4-8.2)
== END 2019-08-19 11:20 | disposition home or self-care (01) ==
LOC: ATC 00:12
PROVIDERS: Specialist
DX: T84.63XA Infection and inflammatory reaction due to internal fixation device of spine, initial encounter (principal); I10 Essential (primary) hypertension; E78.5 Hyperlipidemia, unspecified; Z88.1 Allergy status to other antibiotic agents; Z98.890 Other specified postprocedural states; Z88.8 Allergy status to other drugs, medicaments and biological substances; Z91.048 Other nonmedicinal substance allergy status; Z88.5 Allergy status to narcotic agent; Z79.899 Other long term (current) drug therapy
CPT/HCPCS: 80053; 82550; 85025; 85651; 86140; 96365; J0878

== ENCOUNTER 2019-08-20 00:07 | Day surgery (SDC) | payer MEDICARE, OTHER | END 2019-08-20 09:16 | disposition home or self-care (01) | LOC: ATC 00:07 | DX: T84.63XA Infection and inflammatory reaction due to internal fixation device of spine, initial encounter (principal); I10 Essential (primary) hypertension; E78.5 Hyperlipidemia, unspecified; Z88.8 Allergy status to other drugs, medicaments and biological substances; Z88.0 Allergy status to penicillin; Z91.048 Other nonmedicinal substance allergy status; Z88.1 Allergy status to other antibiotic agents; Z79.899 Other long term (current) drug therapy; Z98.890 Other specified postprocedural states | CPT/HCPCS: 96365; J0878 ==

== ENCOUNTER 2019-08-21 00:09 | Day surgery (SDC) | payer MEDICARE, OTHER | END 2019-08-21 09:24 | disposition home or self-care (01) | LOC: ATC 00:09 | DX: T84.63XA Infection and inflammatory reaction due to internal fixation device of spine, initial encounter (principal); I10 Essential (primary) hypertension; E78.5 Hyperlipidemia, unspecified; Z88.1 Allergy status to other antibiotic agents | CPT/HCPCS: 96365; J0878 ==

== ENCOUNTER 2019-08-22 07:58 | Day surgery (SDC) | payer MEDICARE, OTHER | END 2019-08-22 10:17 | disposition home or self-care (01) | LOC: ATC 07:58 | DX: T84.63XA Infection and inflammatory reaction due to internal fixation device of spine, initial encounter (principal); I10 Essential (primary) hypertension; E78.5 Hyperlipidemia, unspecified; Z88.1 Allergy status to other antibiotic agents | CPT/HCPCS: 96365; J0878 ==

== ENCOUNTER 2019-08-23 01:01 | Day surgery (SDC) | payer MEDICARE, OTHER | END 2019-08-23 10:47 | disposition home or self-care (01) | LOC: ATC 01:01 | DX: T84.63XA Infection and inflammatory reaction due to internal fixation device of spine, initial encounter (principal); I10 Essential (primary) hypertension; E78.5 Hyperlipidemia, unspecified; Z79.899 Other long term (current) drug therapy; Z98.890 Other specified postprocedural states; Z88.5 Allergy status to narcotic agent; Z88.0 Allergy status to penicillin; Z88.1 Allergy status to other antibiotic agents | CPT/HCPCS: 96374; J0878 ==

== ENCOUNTER 2019-08-24 08:42 | Day surgery (SDC) | payer MEDICARE, OTHER | END 2019-08-24 09:18 | disposition home or self-care (01) | LOC: ATC 08:42 | DX: T84.63XA Infection and inflammatory reaction due to internal fixation device of spine, initial encounter (principal); I10 Essential (primary) hypertension; E78.5 Hyperlipidemia, unspecified; Z79.899 Other long term (current) drug therapy; Z79.2 Long term (current) use of antibiotics; Z98.890 Other specified postprocedural states; Z88.0 Allergy status to penicillin; Z88.8 Allergy status to other drugs, medicaments and biological substances; Z91.048 Other nonmedicinal substance allergy status; Z88.5 Allergy status to narcotic agent; Z88.1 Allergy status to other antibiotic agents | CPT/HCPCS: 96365; J0878 ==

== ENCOUNTER 2019-08-25 00:32 | Day surgery (SDC) | payer MEDICARE, OTHER | END 2019-08-25 14:42 | disposition home or self-care (01) | LOC: ATC 00:32 | DX: T84.63XA Infection and inflammatory reaction due to internal fixation device of spine, initial encounter (principal); I10 Essential (primary) hypertension; E78.5 Hyperlipidemia, unspecified; Z88.1 Allergy status to other antibiotic agents | CPT/HCPCS: 96365; J0878 ==

== ENCOUNTER 2019-08-26 00:20 | Day surgery (SDC) | payer MEDICARE, OTHER ==
[2019-08-26 11:19] LABS: BASOPHILS ABSOLUTE AUTO 0.05 K/mm3 (0.00-0.23); BASOPHILS PERCENT AUTO 1 % (0-2); EOSINOPHILS ABSOLUTE AUTO 0.32 K/mm3 (0.00-0.68); EOSINOPHILS PERCENT AUTO 4 % (0-6); Hematocrit 29.8 % (37.0-53.0); Hemoglobin 9.1 g/dL (13.5-17.5); IMMATURE GRAN ABSOLUTE AUTO 0.02 K/mm3 (0.00-0.10); IMMATURE GRAN PERCENT AUTO 0 % (0-1); LYMPHOCYTES ABSOLUTE AUTO 1.72 K/mm3 (0.84-5.20); LYMPHOCYTES PERCENT AUTO 22 % (21-46); MONOCYTES ABSOLUTE AUTO 0.62 K/mm3 (0.16-1.47); MONOCYTES PERCENT AUTO 8 % (4-13); Mean Corpuscular HGB 29.8 pg (26.0-34.0); Mean Corpuscular HGB Conc 30.5 g/dL (31.5-36.5); Mean Corpuscular Volume 98 fL (80-100); Mean Platelet Volume 9.2 fL (9.1-12.4); NEUTROPHILS ABSOLUTE AUTO 5.12 K/mm3 (1.96-9.15); NEUTROPHILS PERCENT AUTO 65 % (41-73); Platelet Count 253 K/mm3 (150-400); RDW Coefficient Variation 13.1 % (11.7-14.2); RDW Standard Deviation 47.1 fL (35.1-46.3); Red Blood Cell Count 3.05 M/mm3 (4.30-5.90); White Blood Cell Count 7.85 K/mm3 (4.00-11.30)
[2019-08-26 11:43] LABS: Alanine Aminotransfer (ALT/SGP 16 U/L (12-78); Albumin, Blood 3.3 g/dL (3.4-5.0); Albumin/Globulin Ratio 0.9 (0.8-1.8); Alk Phos 64 U/L (50-136); Anion Gap 5 mmol/L (6-16); Aspartate Aminotrans (AST/SGOT 21 U/L (12-37); Bilirubin, Total 0.3 mg/dL (0.1-1.0); Blood Urea Nitrogen 15 mg/dL (8-24); Bun/Creatinine Ratio 15.4 (12.0-20.0); CO2, Blood 27 mmol/L (21-32); CPK Creatine Kinase 163 U/L (39-308); Calcium, Blood 8.2 mg/dL (8.5-10.1); Chloride, Blood 106 mmol/L (98-108); Creatinine, Blood 0.97 mg/dL (0.60-1.20); Globulin, Blood 3.6 g/dL (2.2-4.0); Glomerular Filtration Rate >60 (60-); Glucose, Blood 144 mg/dL (70-99); Potassium, Blood 3.6 mmol/L (3.5-5.5); Sodium, Blood 138 mmol/L (136-145); Total Protein, Blood 6.9 g/dL (6.4-8.2)
== END 2019-08-26 10:59 | disposition home or self-care (01) ==
LOC: ATC 00:20
PROVIDERS: Specialist
DX: T84.63XA Infection and inflammatory reaction due to internal fixation device of spine, initial encounter (principal); I10 Essential (primary) hypertension; E78.5 Hyperlipidemia, unspecified; Z88.1 Allergy status to other antibiotic agents
CPT/HCPCS: 80053; 82550; 85025; 85651; 86140; 96365; J0878

== ENCOUNTER 2019-08-27 00:14 | Day surgery (SDC) | payer MEDICARE, OTHER | END 2019-08-27 11:40 | disposition home or self-care (01) | LOC: ATC 00:14 | DX: T84.63XA Infection and inflammatory reaction due to internal fixation device of spine, initial encounter (principal); I10 Essential (primary) hypertension; E78.5 Hyperlipidemia, unspecified; Z98.890 Other specified postprocedural states; Z88.0 Allergy status to penicillin; Z88.8 Allergy status to other drugs, medicaments and biological substances; Z79.899 Other long term (current) drug therapy | CPT/HCPCS: 96365; J0878 ==

== ENCOUNTER 2019-08-28 00:06 | Day surgery (SDC) | payer MEDICARE, OTHER | END 2019-08-28 23:14 | disposition home or self-care (01) | LOC: ATC 00:06 | DX: T84.63XA Infection and inflammatory reaction due to internal fixation device of spine, initial encounter (principal); I10 Essential (primary) hypertension; E78.5 Hyperlipidemia, unspecified; Z88.1 Allergy status to other antibiotic agents | CPT/HCPCS: 96365; J0878 ==

== ENCOUNTER 2019-08-29 00:07 | Day surgery (SDC) | payer MEDICARE, OTHER ==
--- NOTE | 2019-08-29 10:03 | NUR ---
LOREN TREJO RN AND JENNIFER TORRES FROM PHARMACY BOTH CAME AND TALKED WITH PT CONCERNING THE LONG WAIT FOR DAPTOMYACIN.
== END 2019-08-29 09:43 | disposition home or self-care (01) ==
LOC: ATC 00:07
DX: T84.63XA Infection and inflammatory reaction due to internal fixation device of spine, initial encounter (principal); I10 Essential (primary) hypertension; E78.5 Hyperlipidemia, unspecified; Z88.0 Allergy status to penicillin; Z88.8 Allergy status to other drugs, medicaments and biological substances; Z91.048 Other nonmedicinal substance allergy status; Z88.5 Allergy status to narcotic agent; Z88.1 Allergy status to other antibiotic agents; Z79.899 Other long term (current) drug therapy; Z98.890 Other specified postprocedural states
CPT/HCPCS: 96365; J0878

== ENCOUNTER 2019-08-30 00:14 | Day surgery (SDC) | payer MEDICARE, OTHER | END 2019-08-30 09:10 | disposition home or self-care (01) | LOC: ATC 00:14 | DX: T84.63XA Infection and inflammatory reaction due to internal fixation device of spine, initial encounter (principal); E78.5 Hyperlipidemia, unspecified; I10 Essential (primary) hypertension; G43.909 Migraine, unspecified, not intractable, without status migrainosus; G47.30 Sleep apnea, unspecified; E78.00 Pure hypercholesterolemia, unspecified; Z79.899 Other long term (current) drug therapy; Z98.1 Arthrodesis status; Z88.6 Allergy status to analgesic agent; Z88.8 Allergy status to other drugs, medicaments and biological substances; Z88.5 Allergy status to narcotic agent; Z88.1 Allergy status to other antibiotic agents; Z91.048 Other nonmedicinal substance allergy status; Y83.1 Surgical operation with implant of artificial internal device as the cause of abnormal reaction of the patient, or of later complication, without mention of misadventure at the time of the procedure | CPT/HCPCS: 96365; J0878 ==

== ENCOUNTER 2019-08-31 00:53 | Day surgery (SDC) | payer MEDICARE, OTHER | END 2019-08-31 09:00 | disposition home or self-care (01) | LOC: ATC 00:53 | DX: T84.63XA Infection and inflammatory reaction due to internal fixation device of spine, initial encounter (principal); I10 Essential (primary) hypertension; E78.00 Pure hypercholesterolemia, unspecified; G47.30 Sleep apnea, unspecified; G43.909 Migraine, unspecified, not intractable, without status migrainosus; Z98.1 Arthrodesis status; Z79.899 Other long term (current) drug therapy; Z79.891 Long term (current) use of opiate analgesic; Z88.8 Allergy status to other drugs, medicaments and biological substances; Z88.6 Allergy status to analgesic agent; Z88.1 Allergy status to other antibiotic agents; Z88.5 Allergy status to narcotic agent; Z91.048 Other nonmedicinal substance allergy status; Y83.1 Surgical operation with implant of artificial internal device as the cause of abnormal reaction of the patient, or of later complication, without mention of misadventure at the time of the procedure | CPT/HCPCS: 96365; J0878 ==

== ENCOUNTER 2019-09-01 01:06 | Day surgery (SDC) | payer MEDICARE, OTHER | END 2019-09-01 22:38 | disposition home or self-care (01) | LOC: ATC 01:06 | DX: T84.63XA Infection and inflammatory reaction due to internal fixation device of spine, initial encounter (principal); I10 Essential (primary) hypertension; E78.5 Hyperlipidemia, unspecified; E78.00 Pure hypercholesterolemia, unspecified; G47.30 Sleep apnea, unspecified; G43.909 Migraine, unspecified, not intractable, without status migrainosus; Z79.899 Other long term (current) drug therapy; Z98.1 Arthrodesis status; Z88.8 Allergy status to other drugs, medicaments and biological substances; Z91.048 Other nonmedicinal substance allergy status; Z88.5 Allergy status to narcotic agent; Z88.1 Allergy status to other antibiotic agents; Y83.1 Surgical operation with implant of artificial internal device as the cause of abnormal reaction of the patient, or of later complication, without mention of misadventure at the time of the procedure ==

== ENCOUNTER 2019-09-02 00:39 | Day surgery (SDC) | payer MEDICARE, OTHER ==
[2019-09-02 08:30] LABS: BASOPHILS ABSOLUTE AUTO 0.05 K/mm3 (0.00-0.23); BASOPHILS PERCENT AUTO 1 % (0-2); EOSINOPHILS ABSOLUTE AUTO 0.34 K/mm3 (0.00-0.68); EOSINOPHILS PERCENT AUTO 4 % (0-6); Hematocrit 33.3 % (37.0-53.0); Hemoglobin 10.3 g/dL (13.5-17.5); IMMATURE GRAN ABSOLUTE AUTO 0.02 K/mm3 (0.00-0.10); IMMATURE GRAN PERCENT AUTO 0 % (0-1); LYMPHOCYTES ABSOLUTE AUTO 1.96 K/mm3 (0.84-5.20); LYMPHOCYTES PERCENT AUTO 24 % (21-46); MONOCYTES ABSOLUTE AUTO 0.78 K/mm3 (0.16-1.47); MONOCYTES PERCENT AUTO 10 % (4-13); Mean Corpuscular HGB 29.9 pg (26.0-34.0); Mean Corpuscular HGB Conc 30.9 g/dL (31.5-36.5); Mean Corpuscular Volume 97 fL (80-100); Mean Platelet Volume 9.2 fL (9.1-12.4); NEUTROPHILS PERCENT AUTO 61 % (41-73); Platelet Count 292 K/mm3 (150-400); RDW Coefficient Variation 13.2 % (11.7-14.2); Red Blood Cell Count 3.44 M/mm3 (4.30-5.90); White Blood Cell Count 8.05 K/mm3 (4.00-11.30)
[2019-09-02 08:50] LABS: Alanine Aminotransfer (ALT/SGP 22 U/L (12-78); Albumin, Blood 3.7 g/dL (3.4-5.0); Albumin/Globulin Ratio 0.9 (0.8-1.8); Alk Phos 75 U/L (50-136); Anion Gap 4 mmol/L (6-16); Aspartate Aminotrans (AST/SGOT 22 U/L (12-37); Bilirubin, Total 0.3 mg/dL (0.1-1.0); Blood Urea Nitrogen 15 mg/dL (8-24); Bun/Creatinine Ratio 14.4 (12.0-20.0); C-REACTIVE PROTEIN, EXT RANGE 0.296 mg/dL (0.000-0.300); CO2, Blood 30 mmol/L (21-32); CPK Creatine Kinase 183 U/L (39-308); Calcium, Blood 8.9 mg/dL (8.5-10.1); Chloride, Blood 105 mmol/L (98-108); Creatinine, Blood 1.04 mg/dL (0.60-1.20); Globulin, Blood 4.1 g/dL (2.2-4.0); Glomerular Filtration Rate >60 (60-); Glucose, Blood 101 mg/dL (70-99); Potassium, Blood 4.8 mmol/L (3.5-5.5); Sodium, Blood 139 mmol/L (136-145); Total Protein, Blood 7.8 g/dL (6.4-8.2)
== END 2019-09-02 08:10 | disposition home or self-care (01) ==
LOC: ATC 00:39
PROVIDERS: Specialist
DX: T84.63XA Infection and inflammatory reaction due to internal fixation device of spine, initial encounter (principal); I10 Essential (primary) hypertension; E78.5 Hyperlipidemia, unspecified; Z98.890 Other specified postprocedural states; Z79.899 Other long term (current) drug therapy; Z88.0 Allergy status to penicillin; Z88.8 Allergy status to other drugs, medicaments and biological substances; Z91.048 Other nonmedicinal substance allergy status; Z88.5 Allergy status to narcotic agent; Z88.1 Allergy status to other antibiotic agents
CPT/HCPCS: 80053; 82550; 85025; 85651; 86140; 99212

== ENCOUNTER → 2019-12-02 | Outpatient (CLI) | payer MEDICARE, OTHER | END | disposition home or self-care (01) | LOC: LAB SHORT 12:00 → PLD 12:00 | DX: L57.0 Actinic keratosis (principal) | CPT/HCPCS: 88305 ==

== ENCOUNTER → 2020-05-04 | Outpatient (CLI) | payer MEDICARE, OTHER ==
[2020-05-04 15:49] LABS: BASOPHILS ABSOLUTE AUTO 0.07 K/mm3 (0.00-0.23); BASOPHILS PERCENT AUTO 1 % (0-2); EOSINOPHILS ABSOLUTE AUTO 0.28 K/mm3 (0.00-0.68); EOSINOPHILS PERCENT AUTO 3 % (0-6); Hematocrit 36.5 % (37.0-53.0); Hemoglobin 11.1 g/dL (13.5-17.5); IMMATURE GRAN ABSOLUTE AUTO 0.03 K/mm3 (0.00-0.10); IMMATURE GRAN PERCENT AUTO 0 % (0-1); LYMPHOCYTES ABSOLUTE AUTO 2.45 K/mm3 (0.84-5.20); LYMPHOCYTES PERCENT AUTO 28 % (21-46); MONOCYTES ABSOLUTE AUTO 0.78 K/mm3 (0.16-1.47); MONOCYTES PERCENT AUTO 9 % (4-13); Mean Corpuscular HGB 30.2 pg (26.0-34.0); Mean Corpuscular HGB Conc 30.4 g/dL (31.5-36.5); Mean Corpuscular Volume 99 fL (80-100); Mean Platelet Volume 9.6 fL (9.1-12.4); NEUTROPHILS PERCENT AUTO 59 % (41-73); Platelet Count 285 K/mm3 (150-400); RDW Coefficient Variation 13.3 % (11.7-14.2); RDW Standard Deviation 48.4 fL (35.1-46.3); Red Blood Cell Count 3.68 M/mm3 (4.30-5.90); White Blood Cell Count 8.71 K/mm3 (4.00-11.30)
== END | disposition home or self-care (01) ==
LOC: LAB 13:48 → LAB SHORT 13:48
PROVIDERS: Hospitalist
DX: G06.1 Intraspinal abscess and granuloma (principal)
CPT/HCPCS: 85025; 85651; 86140

== ENCOUNTER 2020-08-16 16:49 | Emergency (ER) | payer MEDICARE, OTHER ==
[~2020-08-16] VITALS: Ht 167.6 cm; Wt 79.8 kg
[~2020-08-16 16:49] MED LIST changes: -Amoxicillin500 M1 PO; -CLON.1 PO; -FUROSEMIDE40 MG PO; -LOSARTAN POTAS100 M1 PO; -ONDA4 PO; -PROM25 PO; -SPIRONOLACTONE25 MG PO
[2020-08-16] MEDS ORDERED: FUROSEMIDE40 MG PO (17:58)
[2020-08-16] MEDS ORDERED: LOSARTAN POTAS100 M1 PO (17:58)
[2020-08-16] MEDS ORDERED: ONDA4 PO (18:00)
[2020-08-16] MEDS ORDERED: Amoxicillin500 M1 PO (18:01)
[2020-08-16] MEDS ORDERED: SPIRONOLACTONE25 MG PO (18:01)
[2020-08-16] MEDS ORDERED: CLON.1 PO (18:02)
[2020-08-16] MEDS ORDERED: PROM25 PO (21:07)
== END 2020-08-16 21:28 | disposition home or self-care (01) ==
LOC: ER 16:49
DX: R11.2 Nausea with vomiting, unspecified (principal); R19.7 Diarrhea, unspecified; R50.9 Fever, unspecified; R10.9 Unspecified abdominal pain; M54.2 Cervicalgia; R53.83 Other fatigue; I48.91 Unspecified atrial fibrillation; I10 Essential (primary) hypertension; Z88.8 Allergy status to other drugs, medicaments and biological substances; Z88.5 Allergy status to narcotic agent; Z91.09 Other allergy status, other than to drugs and biological substances; Z91.040 Latex allergy status; Z79.899 Other long term (current) drug therapy
CPT/HCPCS: 74177; 83605; 93005; 93010; 96374-59; 96375; 96376; 99285-25; A9270-GY; J2270; J2405; J2550; J7120; Q9967; U0002

== ENCOUNTER → 2020-08-16 | Outpatient (CLI) | payer MEDICARE, OTHER ==
[~2020-08-16] MED LIST changes: +Amoxicillin500 M1 PO; +CLON.1 PO; +FUROSEMIDE40 MG PO; +LOSARTAN POTAS100 M1 PO; +ONDA4 PO; +PROM25 PO; +SPIRONOLACTONE25 MG PO
[2020-08-16 16:37] LABS: BASOPHILS ABSOLUTE AUTO 0.04 K/mm3 (0.00-0.23); BASOPHILS PERCENT AUTO 0 % (0-2); EOSINOPHILS PERCENT AUTO 0 % (0-6); Hematocrit 37.9 % (37.0-53.0); Hemoglobin 12.5 g/dL (13.5-17.5); IMMATURE GRAN ABSOLUTE AUTO 0.07 K/mm3 (0.00-0.10); IMMATURE GRAN PERCENT AUTO 1 % (0-1); LYMPHOCYTES PERCENT AUTO 10 % (21-46); MONOCYTES ABSOLUTE AUTO 1.01 K/mm3 (0.16-1.47); MONOCYTES PERCENT AUTO 7 % (4-13); Mean Corpuscular HGB 30.5 pg (26.0-34.0); Mean Corpuscular Volume 92 fL (80-100); Mean Platelet Volume 9.2 fL (9.1-12.4); NEUTROPHILS ABSOLUTE AUTO 12.76 K/mm3 (1.96-9.15); NEUTROPHILS PERCENT AUTO 83 % (41-73); Platelet Count 354 K/mm3 (150-400); RDW Coefficient Variation 13.5 % (11.7-14.2); RDW Standard Deviation 45.6 fL (35.1-46.3); White Blood Cell Count 15.38 K/mm3 (4.00-11.30)
[2020-08-16 16:46] LABS: Alanine Aminotransfer (ALT/SGP 21 U/L (12-78); Albumin, Blood 3.8 g/dL (3.4-5.0); Albumin/Globulin Ratio 0.8 (0.8-1.8); Alk Phos 69 U/L (40-126); Anion Gap 9 mmol/L (6-16); Aspartate Aminotrans (AST/SGOT 18 U/L (12-37); Bilirubin, Total 0.6 mg/dL (0.1-1.0); Blood Urea Nitrogen 19 mg/dL (8-24); Bun/Creatinine Ratio 17.3 (12.0-20.0); CO2, Blood 27 mmol/L (21-32); Calcium, Blood 9.2 mg/dL (8.5-10.1); Chloride, Blood 101 mmol/L (98-108); Globulin, Blood 4.5 g/dL (2.2-4.0); Glomerular Filtration Rate >60 (60-); Glucose, Blood 137 mg/dL (70-99); Potassium, Blood 3.1 mmol/L (3.5-5.5); Sodium, Blood 137 mmol/L (136-145); Total Protein, Blood 8.3 g/dL (6.4-8.2)
== END | disposition home or self-care (01) ==
LOC: LAB SHORT 16:32 → LAB EV 16:32
PROVIDERS: Physician Assistant
DX: R10.9 Unspecified abdominal pain (principal); R50.9 Fever, unspecified
CPT/HCPCS: 80053; 85025; 87040

== ENCOUNTER 2020-09-22 07:57 | Day surgery (SDC) | payer MEDICARE, OTHER ==
[~2020-09-22] VITALS: Ht 167.6 cm; Wt 83.5 kg
[~2020-09-22 07:57] MED LIST changes: +Amoxicillin500 M1 PO; +CLON.1 PO; +FUROSEMIDE40 MG PO; +HYDROMORPHO2 MG/1 M2 IV; +LOSARTAN POTAS100 M1 PO; +ONDA4 PO; +PROM25 PO; +SPIRONOLACTONE25 MG PO; +TIZA4 PO
--- NOTE | 2020-09-22 09:01 | NUR ---
09/22/20 0901 [place] WHEN MEETING AND DOING ASSESSMENT ON PATIENT IT IS OBVIOUS THAT PATIENT IS IN PAIN. PATIENT RATES PAIN 9/10 IN HIS BACK. STATES HE TOOK HIS PAIN MEDICATION THIS MORNING SCHEDULED BUT "IT DOESN'T EVEN HELP". PATIENTS ASKS "ISN'T THERE ANY PAIN MEDICATION YOU CAN GIVE TO HELP HIM?" I EXPLAIN TO HER THAT HE IS NOT HERE FOR PAIN TREATMENT AND THIS WOULD NEED TO BE ORDERED BY PHYSICIAN. I ASSURE HER I WILL NOTIFY BOTH DOCTORS OF HIS SITUATION. DR NOEL AND DR NETTLES NOTIFIED
== END 2020-09-22 10:05 | disposition home or self-care (01) ==
LOC: ORSCSDS 07:57
PROVIDERS: Surgery
PROC: 0DBK8ZX Excision of Ascending Colon, Via Natural or Artificial Opening Endoscopic, Diagnostic (ICD-10-PCS; principal; 2020-09-22 09:15)
DX: Z12.11 Encounter for screening for malignant neoplasm of colon (principal); Z86.010 Personal history of colon polyps; D12.2 Benign neoplasm of ascending colon; I10 Essential (primary) hypertension; I48.91 Unspecified atrial fibrillation; G47.33 Obstructive sleep apnea (adult) (pediatric); I49.9 Cardiac arrhythmia, unspecified; E78.5 Hyperlipidemia, unspecified; G47.30 Sleep apnea, unspecified; E66.9 Obesity, unspecified; Z68.32 Body mass index [BMI] 32.0-32.9, adult; Z79.899 Other long term (current) drug therapy
CPT/HCPCS: 88305; J2250; J2704; J7120

== ENCOUNTER → 2020-11-09 | Outpatient (CLI) | payer MEDICARE, OTHER ==
[~2020-11-09] MED LIST changes: +ADVANCED PROBIOTIC; +Prednisone20 MG PO
[2020-11-09 15:53] LABS: BASOPHILS ABSOLUTE AUTO 0.08 K/mm3 (0.00-0.23); BASOPHILS PERCENT AUTO 1 % (0-2); EOSINOPHILS ABSOLUTE AUTO 0.24 K/mm3 (0.00-0.68); EOSINOPHILS PERCENT AUTO 3 % (0-6); Hematocrit 37.8 % (37.0-53.0); Hemoglobin 11.7 g/dL (13.5-17.5); IMMATURE GRAN ABSOLUTE AUTO 0.02 K/mm3 (0.00-0.10); IMMATURE GRAN PERCENT AUTO 0 % (0-1); LYMPHOCYTES ABSOLUTE AUTO 1.84 K/mm3 (0.84-5.20); LYMPHOCYTES PERCENT AUTO 23 % (21-46); MONOCYTES ABSOLUTE AUTO 0.69 K/mm3 (0.16-1.47); MONOCYTES PERCENT AUTO 9 % (4-13); Mean Corpuscular HGB 30.8 pg (26.0-34.0); Mean Corpuscular Volume 100 fL (80-100); Mean Platelet Volume 10.2 fL (9.1-12.4); NEUTROPHILS ABSOLUTE AUTO 5.13 K/mm3 (1.96-9.15); NEUTROPHILS PERCENT AUTO 64 % (41-73); Platelet Count 262 K/mm3 (150-400); RDW Coefficient Variation 13.3 % (11.7-14.2)
== END | disposition home or self-care (01) ==
LOC: LAB 14:13
PROVIDERS: Hospitalist
DX: M54.5 Low back pain (principal)
CPT/HCPCS: 85025; 85651

== ENCOUNTER 2020-11-16 12:33 | Emergency (ER) | payer MEDICARE, OTHER ==
[~2020-11-16] VITALS: Ht 167.6 cm; Wt 79.8 kg
[~2020-11-16 12:33] MED LIST changes: -ADVANCED PROBIOTIC; -Prednisone20 MG PO
[2020-11-16] MEDS ORDERED: ADVANCED PROBIOTIC (15:25)
[2020-11-16 16:22] LABS: BASOPHILS ABSOLUTE AUTO 0.06 K/mm3 (0.00-0.23); BASOPHILS PERCENT AUTO 1 % (0-2); EOSINOPHILS ABSOLUTE AUTO 0.19 K/mm3 (0.00-0.68); EOSINOPHILS PERCENT AUTO 2 % (0-6); Hematocrit 35.7 % (37.0-53.0); Hemoglobin 11.4 g/dL (13.5-17.5); IMMATURE GRAN ABSOLUTE AUTO 0.02 K/mm3 (0.00-0.10); IMMATURE GRAN PERCENT AUTO 0 % (0-1); LYMPHOCYTES ABSOLUTE AUTO 2.43 K/mm3 (0.84-5.20); LYMPHOCYTES PERCENT AUTO 24 % (21-46); MONOCYTES ABSOLUTE AUTO 0.73 K/mm3 (0.16-1.47); MONOCYTES PERCENT AUTO 7 % (4-13); Mean Corpuscular HGB 31.4 pg (26.0-34.0); Mean Corpuscular HGB Conc 31.9 g/dL (31.5-36.5); Mean Corpuscular Volume 98 fL (80-100); Mean Platelet Volume 9.4 fL (9.1-12.4); NEUTROPHILS ABSOLUTE AUTO 6.85 K/mm3 (1.96-9.15); NEUTROPHILS PERCENT AUTO 67 % (41-73); Platelet Count 241 K/mm3 (150-400); RDW Standard Deviation 47.3 fL (35.1-46.3); Red Blood Cell Count 3.63 M/mm3 (4.30-5.90); White Blood Cell Count 10.28 K/mm3 (4.00-11.30)
[2020-11-16 16:46] LABS: Alanine Aminotransfer (ALT/SGP 19 U/L (12-78); Albumin, Blood 3.5 g/dL (3.4-5.0); Alk Phos 68 U/L (50-136); Anion Gap 8 mmol/L (6-16); Aspartate Aminotrans (AST/SGOT 15 U/L (12-37); Bilirubin, Total 0.5 mg/dL (0.1-1.0); Blood Urea Nitrogen 14 mg/dL (8-24); Bun/Creatinine Ratio 19.6 (12.0-20.0); CO2, Blood 23 mmol/L (21-32); Chloride, Blood 107 mmol/L (98-108); Creatinine, Blood 0.71 mg/dL (0.60-1.20); Globulin, Blood 3.4 g/dL (2.2-4.0); Glomerular Filtration Rate >60 (60-); Glucose, Blood 93 mg/dL (70-99); Potassium, Blood 3.8 mmol/L (3.5-5.5); Sodium, Blood 138 mmol/L (136-145); Total Protein, Blood 6.9 g/dL (6.4-8.2)
[2020-11-16] MEDS ORDERED: Prednisone20 MG PO (17:11)
== END 2020-11-16 17:50 | disposition home or self-care (01) ==
LOC: ER 12:33
PROVIDERS: Emergency Medicine
DX: G89.29 Other chronic pain (principal); M54.5 Low back pain; I10 Essential (primary) hypertension; I48.91 Unspecified atrial fibrillation; Z88.8 Allergy status to other drugs, medicaments and biological substances; Z88.5 Allergy status to narcotic agent; Z88.1 Allergy status to other antibiotic agents; Z91.09 Other allergy status, other than to drugs and biological substances; Z91.040 Latex allergy status; Z79.899 Other long term (current) drug therapy
CPT/HCPCS: 36415; 80053; 83605; 85025; 87040; 96374; 96375; 99283-25; J2405; J3010; J7030; J7512

== ENCOUNTER 2020-12-07 17:20 | Emergency (ER) | payer MEDICARE, OTHER ==
[~2020-12-07] VITALS: Ht 167.6 cm; Wt 81.7 kg
[~2020-12-07 17:20] MED LIST changes: +ADVANCED PROBIOTIC; +Prednisone20 MG PO
== END 2020-12-07 19:54 | disposition home or self-care (01) ==
LOC: ER 17:20
DX: M54.5 Low back pain (principal); G89.29 Other chronic pain; I48.91 Unspecified atrial fibrillation; I10 Essential (primary) hypertension; Z88.1 Allergy status to other antibiotic agents; Z88.5 Allergy status to narcotic agent; Z91.09 Other allergy status, other than to drugs and biological substances; Z88.8 Allergy status to other drugs, medicaments and biological substances; Z91.040 Latex allergy status; Z79.899 Other long term (current) drug therapy; Z79.52 Long term (current) use of systemic steroids
CPT/HCPCS: 96372-59; 99283-25; J1100; J1885

== ENCOUNTER → 2021-06-14 | Outpatient (CLI) | payer MEDICARE, OTHER | END | disposition home or self-care (01) | LOC: LAB SHORT 11:04 → LAB 11:04 | DX: C44.219 Basal cell carcinoma of skin of left ear and external auricular canal (principal) | CPT/HCPCS: 88305 ==

== ENCOUNTER → 2023-01-26 | Outpatient (CLI) | payer OTHER | END | disposition home or self-care (01) | LOC: LAB SHORT 16:01 → PLD 16:01 | DX: C44.212 Basal cell carcinoma of skin of right ear and external auricular canal (principal); L57.0 Actinic keratosis | CPT/HCPCS: 88305 ==

== ENCOUNTER → 2023-11-06 | Outpatient (CLI) | payer OTHER | LOC: LAB SHORT 12:00 → LAB 12:00 | DX: C44.319 Basal cell carcinoma of skin of other parts of face (principal); D04.61 Carcinoma in situ of skin of right upper limb, including shoulder | CPT/HCPCS: 88305 ==

== ENCOUNTER → 2024-07-09 | Outpatient (CLI) | payer OTHER ==
[2024-07-09 20:40] LABS: Albumin, Blood 3.7 g/dL (3.4-5.0); Albumin/Globulin Ratio 1.2 (0.8-1.8); Bilirubin, Total 0.6 mg/dL (0.1-1.0); Bun/Creatinine Ratio 23.7 (12.0-20.0); Calcium, Blood 8.6 mg/dL (8.5-10.1); Creatinine, Blood 0.84 mg/dL (0.60-1.20); Potassium, Blood 4.6 mmol/L (3.5-5.5); Total Protein, Blood 6.7 g/dL (6.4-8.2)
== END ==
LOC: LAB SHORT 18:09 → LAB 18:09
PROVIDERS: Hospitalist
DX: R11.0 Nausea (principal); R10.13 Epigastric pain
CPT/HCPCS: 80053; 83690

== ENCOUNTER → 2024-11-11 | Outpatient (CLI) | payer OTHER ==
[2024-11-11 15:08] LABS: BASOPHILS ABSOLUTE AUTO 0.04 K/mm3 (0.00-0.23); BASOPHILS PERCENT AUTO 0 % (0-2); EOSINOPHILS PERCENT AUTO 2 % (0-6); Hemoglobin 12.3 g/dL (13.5-17.5); IMMATURE GRAN ABSOLUTE AUTO 0.06 K/mm3 (0.00-0.10); IMMATURE GRAN PERCENT AUTO 1 % (0-1); LYMPHOCYTES ABSOLUTE AUTO 1.55 K/mm3 (0.84-5.20); LYMPHOCYTES PERCENT AUTO 15 % (21-46); MONOCYTES ABSOLUTE AUTO 0.74 K/mm3 (0.16-1.47); MONOCYTES PERCENT AUTO 7 % (4-13); Mean Corpuscular HGB 31.3 pg (26.0-34.0); Mean Corpuscular HGB Conc 32.4 g/dL (31.5-36.5); Mean Corpuscular Volume 97 fL (80-100); Mean Platelet Volume 9.8 fL (9.1-12.4); NEUTROPHILS ABSOLUTE AUTO 7.56 K/mm3 (1.96-9.15); NEUTROPHILS PERCENT AUTO 74 % (41-73); Platelet Count 258 K/mm3 (150-400); RDW Coefficient Variation 13.6 % (11.7-14.2); RDW Standard Deviation 48.5 fL (35.1-46.3); Red Blood Cell Count 3.93 M/mm3 (4.30-5.90); White Blood Cell Count 10.15 K/mm3 (4.00-11.30)
== END ==
LOC: LAB SHORT 13:42 → LAB 13:42
PROVIDERS: Hospitalist
DX: R59.0 Localized enlarged lymph nodes (principal); E04.1 Nontoxic single thyroid nodule
CPT/HCPCS: 84443; 85025

== ENCOUNTER → 2024-12-10 | Outpatient (CLI) | payer OTHER ==
[2024-12-10 14:42] LABS: Bun/Creatinine Ratio 23.2 (12.0-20.0); Calcium, Blood 9.2 mg/dL (8.5-10.1); Creatinine, Blood 0.78 mg/dL (0.60-1.20); Magnesium, Blood 2.3 mg/dL (1.6-2.4); Potassium, Blood 4.2 mmol/L (3.5-5.5)
== END | disposition home or self-care (01) ==
LOC: LAB 09:40 → LAB SHORT 09:40
PROVIDERS: Hospitalist
DX: M62.838 Other muscle spasm (principal)
CPT/HCPCS: 80048; 83735